=== PATIENT | male | born 1975 | race Two or more races ===

== ENCOUNTER 2024-08-05 06:40 | Day surgery (SDC) | payer MEDICAID, SELFPAY ==
[2024-08-04 13:38] VITALS: BMI 36.9
[2024-08-05] VITALS (8 sets, daily range): BP systolic 122–153; BP diastolic 81–102; PULSE 65–71; RESP 12–19; TEMP 36.1–36.4; O2SAT 94–97; BMI 34.8
[2024-08-05] MEDS: SODIUM CHLORIDE 0.9% 500 ML 500 ML 125 ML IV (07:24)
[2024-08-05] MEDS: DiphenhydrAMINE INJ 50 MG/ML VIAL 25 MG IV (07:25)
[2024-08-05] MEDS: fentaNYL CIT INJ 50 mCg/ML AMP 2ML (ASD USE ONLY) IV (07:29)
[2024-08-05] MEDS: MIDAZOLAM INJ 1 MG/ML VIAL 2 ML (ASD USE ONLY) 2 MG IV (07:29)
--- NOTE | 2024-08-05 08:10 | SUR.PHASEII ---
QIAN RN/CERTIFIED CURING PRESS OPERATOR GIVING DISCHARGE INSTRUCTIONS TO PATIENT AND PATIENT'S NICOLÁS.
== END 2024-08-05 08:19 | disposition home or self-care (01) ==
PROVIDERS: PCP Family Medicine; Referring Provider Surgery; Visit Provider Surgery
PROC: 0DBE8ZX Excision of Large Intestine, Via Natural or Artificial Opening Endoscopic, Diagnostic (ICD-10-PCS; CPT 45380; principal; 2024-08-05 07:30)
DX: K64.0 First degree hemorrhoids (principal); K57.31 Diverticulosis of large intestine without perforation or abscess with bleeding
CPT/HCPCS: 45378; J1200; J2250; J3010; J7040